=== PATIENT | male | born 1985 | race Hispanic/Latino ===

== ENCOUNTER 2024-10-21 04:49 | Emergency (ER) | payer OTHER, SELFPAY ==
[2024-10-21 04:56] VITALS: BP 154/82; PULSE 74; RESP 16; TEMP 36.5; O2SAT 95; BMI 28.7
--- NOTE | 2024-10-21 05:00 | ED_ITS ---
HPI - General Adult General Chief complaint: Extremity Injury, Lower Stated complaint: Left ankle injury- Time Seen by Provider: 10/21/24 04:57 Source: patient Mode of arrival: Ambulatory History of Present Illness HPI narrative: Otherwise healthy 39-year-old gentleman works at the [employer], was walking on an uneven surface and had an inversion injury his left ankle. No knee or hip pain. He states many years ago he has sprained his ankle but does not typically have any pain weakness or problems with said ankle. He is able to bear weight however he has significant tenderness on the lateral malleolus with quite a bit of swelling over the lateral malleolus. No other complaints at this time Review of Systems Review of Systems Narrative: Pertinent positive and negative findings as per HPI Patient History Smoking Status: Never smoker Exam Initial Vital Signs Initial Vital Signs: Vital Signs Temperature 97.7 F 10/21/24 04:56 Pulse Rate 74 10/21/24 04:56 Respiratory Rate 16 10/21/24 04:56 Blood Pressure 154/82 H 10/21/24 04:56 Pulse Oximetry 95 10/21/24 04:56 Oxygen Delivery Method Room Air 10/21/24 04:56 General: Alert appropriate in no acute distress Respiratory: Able to speak in full sentences, no obvious respiratory distress Skin: No obvious rashes, warm and dry Neurologic: Grossly intact no obvious asymmetries or abnormalities Psych: appropriate insight and affect, cooperative Extremity: Left ankle in an Benjamin wrap from work. It is unwrapped, he has quite a bit of swelling and bruising to the lateral aspect with point tenderness over the lateral malleoli. Neurovascularly intact distal. He is able to bear weight. No knee or hip pain through full range of motion Course Vital Signs Vital signs: Vital Signs - 8 hr 10/21/24 04:56 Temperature 97.7 F Pulse Rate 74 Respiratory Rate 16 Blood Pressure 154/82 H Pulse Oximetry 95 Oxygen Delivery Method Room Air Medical Decision Making [facility] Narrative Medical decision making narrative: 39-year-old gentleman with no significant medical issues readings was at work walking on an uneven surface, inversion injury to the left ankle with lateral malleolus pain swelling. X-ray shows no obvious fractures. Benjamin wrap is placed by physician along with instructions on how to replace the Benjamin wrap. He is neurovascularly intact pre and post placement. Finds of the compression is helpful and pain control. He has already taken both a lead and Tylenol prior to arrival. L and I forms are filled out this evening. We will recommend continued Benjamin wrap, has lace-up steel toed boots so we will give him additional support, he will be able to return to work at this time. Discharge Plan Departure Patient Disposition: Home Clinical Impression: Ankle sprain and strain Instructions: DI for Ankle Sprain Activity Restrictions/Additional Instructions: Thank you for coming in today Because of the significant tenderness on the outside edge of your ankle, an x- ray was indicated. Fortunately did not show any broken bones. With the swelling and tenderness you have clearly have sprained your ankle. Using the Benjamin wrap applied for compression and support as I showed you will be helpful. We discussed returning to work and work duties. With an Benjamin wrap and a lace-up boot you are going to have enough support that walking on an even surface we will be safe. Bending lifting and twisting we will be safe. You can not climb ladders or steep stairs for a week. That we will put too much strain on the outside of the foot and could make the sprain worse. You will likely find if you are able to elevate your ankle and ice it at least once or twice throughout the day he will have less pain throughout the evening. Using 400 mg of ibuprofen (2 [id number] pills) and 1 Tylenol every 6 hours can be very helpful in controlling pain. If you find that you are getting worse or develop any new symptoms, please feel free to return to the emergency department for further evaluation. Stand Alone Forms: Patient Portal/API/Survey
--- NOTE | 2024-10-21 05:01 | DI.RAD.S_ITS ---
PROCEDURE: XR ANKLE LT MIN 3V INDICATIONS: ankle injury TECHNIQUE: 3 views of the ankle were acquired. COMPARISON: None. FINDINGS: Bones: Along the distal tip of the lateral malleolus, there is a 4 mm fracture fragment seen. No additional fractures are detected. The talar dome demonstrates no adeola abnormality. Soft tissues: Soft tissue swelling is seen, particularly laterally. IMPRESSION: 4 mm fracture fragment seen distal to the lateral malleolus. This is attributed to an avulsion injury, which may be remote. Please correlate with focal tenderness. There is soft tissue swelling seen laterally. Note: No significant discrepancy from the preliminary report. Dictated by: Dalton Durant M.D. on 10/21/2024 at 8:09 Approved by: Dalton Durant M.D. on 10/21/2024 at 8:10
== END 2024-10-21 05:24 | disposition home or self-care (01) ==
PROVIDERS: Emergency Provider Emergency Medicine
DX: S93.402A Sprain of unspecified ligament of left ankle, initial encounter (principal); X50.1XXA Overexertion from prolonged static or awkward postures, initial encounter; Y93.01 Activity, walking, marching and hiking; Y92.89 Other specified places as the place of occurrence of the external cause; Y99.0 Civilian activity done for income or pay
CPT/HCPCS: 73610; 99281; 99283